=== PATIENT | female | born 1990 | race Two or more races ===

== ENCOUNTER 2024-09-03 19:49 | Emergency (ER) | payer MEDICAID ==
[~2024-09-03] VITALS: Ht 152.4 cm; Wt 66.6 kg
--- NOTE | 2024-09-03 20:28 | ED.PDOC ---
HPI Comments 33 y/o F with a history of anemia and 1 prior blood transfusion presents for 1x week history of mid sternal chest pain. Patient states pain radiates to her right arm, bilateral lower chest and right leg in addition to having associated fever, nausea, vomiting, diarrhea, and intermittent shortness of breath. She denies any palpitations, cough, congestion, bloody vomitus or stools, or further associated symptoms. No endorsed recent sick contact. Only significant history of anemia and blood transfusions. Chief Complaint: Chest Pain Time Seen by MD: 20:20 Reviewed Notes: Nurses Notes, Medications, Allergies Allergies: Coded Allergies: NO KNOWN ALLERGIES (Unverified , 09/03/24) Home Meds Active Scripts Ondansetron Odt 4MG Tab (ZOFRAN PO) 4 Mg Tb, 4 MG PO TID PRN, #20 TAB Prn nausea or vomiting ODT TAB-DISSOLVE IN MOUTH, THEN SWALLOW Prov:JUAN M ERICKSON MD 09/03/24 Ibuprofen Micronized (Ibuprofen) 800 Mg Tab, 800 MG PO Q8HP PRN, #30 TAB Prn fever or pain. Take with food. Prov:JUAN M ERICKSON MD 09/03/24 Acetaminophen (Tylenol Extra Strength) 500 Mg Tab, 1000 MG PO Q6HP PRN, #30 TAB Prn fever or pain Prov:JUAN M ERICKSON MD 09/03/24 Information Source: Patient Mode of Arrival: Ambulatory Severity: Moderate Timing: Weeks Duration: Since onset Prehospital treatment: None Past Medical History PAST MEDICAL HISTORY: Anemia Surgical History (Other): blood transfusions neck cyst removal SANITATION INSPECTOR History: Denies all SANITATION INSPECTOR Hx Family History Family History: Unknown Social History Smoker: Non-Smoker Alcohol: Denies ETOH Use Drugs: Denies Drug Use Lives In: Home All Other Systems: Reviewed and Negative (As per HPI) Physical Exam General Appearance: No Apparent Distress, Obese HEENT: Other (Pupils and face symmetric. Moist mucous membranes.) Neck: Full Range of Motion, Normal Inspection Respiratory: Lungs Clear, No Accessory Muscle Use, No Respiratory Distress, Normal Breath Sounds Cardiovascular: No Edema, No JVD, Tachycardia Breast Exam: Deferred Gastrointestinal: Non Tender, Soft Genitalia: Deferred Pelvic: Deferred Rectal: Deferred Extremities: No calf tenderness, Normal range of motion, No pedal edema Neurologic: Alert (Oriented x4), Normal Affect, Normal Mood Cerebellar Function: NOT DONE Reflexes: NOT DONE Skin: Dry, Normal Color, Warm Lymphatic: NOT DONE EKG EKG : Comments Sinus tach, rate 114, normal intervals, normal axis, normal QRS, no ST/T changes. Was a procedure done? Was a procedure done?: No CP Differential Dx Differential Diagnosis: N/A Differential Diagnosis: N/A Differential Diagnosis: Angina, Chest Wall Pain, Cholelithiasis, Costochondritis, Esophageal reflux/spasm, Gastritis, Myocardial Infarction, Pericarditis, Pneumonia, Pulmonary Embolus, Other (viral syndrome ) X-Ray, Labs, Meds, VS Vital Signs Date Time Temp Pulse Resp B/P (MAP) Pulse Ox O2 Delivery O2 Flow Rate FiO2 09/03/24 21:28 98 Room Air* 0 21 09/03/24 20:44 97.9 116 20 111/67 (82) 95 97.9 09/03/24 19:59 114 09/03/24 19:54 97.7 119 20 122/72 (89) 98 97.7 Lab Test 09/03/24 20:59 09/03/24 20:33 09/03/24 20:20 09/03/24 20:10 Range/Units Troponin I High Sensitivity < 3 L </=34 ng/L Influenza Type A Antigen Negative Negative Influenza Type B Antigen Negative Negative SARS-CoV-2 Antigen (Rapid) Negative NEGATIVE Urine Color Yellow Yellow Urine Clarity Clear Clear Urine pH 8.5 5.0-9.0 Urine Specific [place] 1.028 1.001-1.035 Urine Protein 1+ H Negative Urine Ketones Negative Negative Urine Blood Negative Negative /uL Urine Nitrite Negative Negative Urine Bilirubin Negative Negative Urine Urobilinogen 2 H Negative mg/dL Urine Leukocyte Esterase Negative Negative /uL Urine RBC <1 0 - 4 /hpf Urine Microscopic WBC 1 0-5 /HPF Urine Squamous Epithelial Cells Few <5 /hpf Urine Bacteria None seen None Seen /hpf Urine Mucus Few None Seen Urine Glucose Normal Normal mg/dL Urine Test Negative Negative Test 09/03/24 20:03 Range/Units White Blood Count 9.7 4.4-10.8 10^3/uL Red Blood Count 4.41 4.0-5.20 10^6/uL Hemoglobin 13.4 12.2-16.2 g/dL Hematocrit 37.4 36.0-46.0 % Mean Corpuscular Volume 84.9 80.0-100.0 fL Mean Corpuscular Hemoglobin 30.3 28.0-32.0 pg Mean Corpuscular Hemoglobin Concent 35.7 32.0-36.0 g/dL Red Cell Distribution Width 13.2 11.8-14.3 % Platelet Count 234 140-450 10^3/uL Mean Platelet Volume 9.5 6.9-10.8 fL Neutrophils (%) (Auto) 87.0 H 37.0-80.0 % Lymphocytes (%) (Auto) 8.3 L 10.0-50.0 % Monocytes (%) (Auto) 3.3 0.0-12.0 % Eosinophils (%) (Auto) 1.0 0.0-7.0 % Basophils (%) (Auto) 0.4 0.0-2.0 % Neutrophils # (Auto) 8.4 1.6-8.6 10 ^3/uL Lymphocytes # (Auto) 0.8 0.4-5.4 10 ^3/uL Monocytes # (Auto) 0.3 0-1.3 10 ^3/uL Eosinophils # (Auto) 0.1 0-0.8 10 ^3/uL Basophils # (Auto) 0 0-0.2 10 ^3/uL Nucleated Red Blood Cells 0.0 % Sodium Level 142 136-145 mmol/L Potassium Level 3.4 L 3.5-5.1 mmol/L Chloride Level 105 98-107 mmol/L Carbon Dioxide Level 26 20-31 mmol/L Anion Gap 11 5-15 Blood Urea Nitrogen 10 9-23 mg/dL Creatinine 0.91 0.550-1.02 mg/dL Glomerular Filtration Rate Calc 86 >90 mL/min BUN/Creatinine Ratio 11.0 10.0-20.0 Serum Glucose 120 H 74-106 mg/dL Calcium Level 10.5 H 8.7-10.4 mg/dL Troponin I High Sensitivity < 3 L </=34 ng/L B-Type Natriuretic Peptide 2.91 0-100 pg/mL Current Medications Medications (Trade) Dose Ordered Sig/Juanito Route Start Time Stop Time Status Last Admin Sodium Chloride 2,000 ml @ 1,000 mls/hr Q2H ONCE IV 09/03/24 20:30 09/03/24 22:29 09/03/24 20:56 Acetaminophen (Tylenol Tablet Or Capsule) 1,000 mg ONCE ONCE PO 09/03/24 20:30 09/03/24 20:31 DC 09/03/24 21:01 Potassium Bicarbonate (Klor-Con/Ef) 50 meq ONCE ONCE PO 09/03/24 21:15 09/03/24 21:16 DC 09/03/24 21:24 PROCEDURE(s): CXR1 - CHEST XRAY 1 VIEW REASON: cp ORDER NUMBER(s): [id number], ACCESSION NUMBER(s): [id number] CHEST RADIOGRAPH Indication: cp Technique: Single frontal view of the chest was obtained Comparison: None FINDINGS: Lines and Tubes: None Lungs: No focal consolidation. Pleura: No effusion. No pneumothorax. Cardiomediastinal contours: Unremarkable Bones: No acute osseous abnormality. IMPRESSION: 1. No acute cardiopulmonary disease. X-Ray, Labs, Meds, VS Comment 33-year-old female with a history of anemia complaining of chest pain radiating to the right shoulder, associated with fever, myalgias, nausea, vomiting and diarrhea Vitals remarkable for heart rate 119 Exam unremarkable except for tachycardia Rhythm strip independently interpreted by me: Sinus tach, rate 114, no ectopy. Chest x-ray no acute disease CBC unremarkable, metabolic panel remarkable for potassium 3.4, 2 serial troponins negative, BNP normal, urine test negative, UA Patient treated with the following in the ED: 2 L 0.9 normal saline IV bolus, Tylenol 1 g p.o., Zofran 4 mg IV, effervescent potassium 50 mEq p.o. On re-evaluation, patient states symptoms have improved. Vitals are stable, tachycardia has resolved. Patient appears stable for discharge with close outpatient follow-up with her primary physician. Time of 1ST Reevaluation: 20:50 Reevaluation 1ST: Unchanged Patient Education/Counseling: Diagnosis, Treatment, Need For Follow Up Family Education/Counseling: No Family Present SEPSIS Sepsis Screen Physician Orders Electrocardigram (09/03/24 19:56) Chest Xray 1 View (09/03/24 20:20) Sodium Chloride 0.9% (09/03/24 20:30) Vital Signs Date Time Temp Pulse Resp B/P (MAP) Pulse Ox O2 Delivery O2 Flow Rate FiO2 09/03/24 21:28 98 Room Air* 0 21 09/03/24 20:44 97.9 116 20 111/67 (82) 95 97.9 09/03/24 19:59 114 09/03/24 19:54 97.7 119 20 122/72 (89) 98 97.7 Laboratory Tests Test 09/03/24 20:03 White Blood Count 9.7 10^3/uL (4.4-10.8) Medications Medications Dose Ordered Sig/Juanito Route Start Time Stop Time Status Last Admin Dose Admin Acetaminophen 1,000 mg ONCE ONCE PO 09/03/24 20:30 09/03/24 20:31 DC 09/03/24 21:01 Potassium Bicarbonate 50 meq ONCE ONCE PO 09/03/24 21:15 09/03/24 21:16 DC 09/03/24 21:24 Sodium Chloride 2,000 ml @ 1,000 mls/hr Q2H ONCE IV 09/03/24 20:30 09/03/24 22:29 09/03/24 20:56 Departure 1 Departure Time of Disposition: 21:13 Impression: Primary Impression: Chest pain with low risk for cardiac etiology Additional Impression: Viral syndrome Disposition: HOME / SELF CARE / HOMELESS Condition: Stable Additional Instructions: Your blood tests, including screening tests for heart attack and heart failure, were unremarkable except for a low potassium. We have corrected this in the ER. Your screening test for the flu was negative. Your urine test was unremarkable. Your symptoms may be due to a viral illness, which only requires treatment of your symptoms. I have prescribed medication for your symptoms. Follow-up with your primary doctor in 1-2 days. Return to ER for persistent or worsening symptoms. e-Prescriptions Ondansetron Odt 4MG Tab (ZOFRAN PO) 4 Mg Tb 4 MG PO TID PRN, #20 TAB Prn nausea or vomiting ODT TAB-DISSOLVE IN MOUTH, THEN SWALLOW Prov: JUAN M ERICKSON MD 09/03/24 Ibuprofen Micronized (Ibuprofen) 800 Mg Tab 800 MG PO Q8HP PRN, #30 TAB Prn fever or pain. Take with food. Prov: JUAN M ERICKSON MD 09/03/24 Acetaminophen (Tylenol Extra Strength) 500 Mg Tab 1000 MG PO Q6HP PRN, #30 TAB Prn fever or pain Prov: JUAN M ERICKSON MD 09/03/24 Discharged With: Relative Critical Care Note Critical Care Time?: No Stability Stability form required: No Heart Score Heart Score: Heart Score Response (Comments) Value History Slightly Suspicious 0 EKG Normal 0 Age <45 0 Risk Factors No known risk factors 0 Troponin Normal limit 0 Total 0 I personally scribed for JUAN M ERICKSON MD ([email or web address]) on 09/03/24 at 20:28. Electronically submitted by Mo Thompson ([email or web address]). I personally scribed for JUAN M ERICKSON MD ([email or web address]) on 09/03/24 at 20:56. Electronically submitted by Mo Thompson ([email or web address]). JUAN M ERICKSON MD Sep 03, 2024 20:28
[2024-09-03 20:32] LABS: Basophils # (auto) 0 10 ^3/uL (0-0.2); Basophils % (auto) 0.4 % (0.0-2.0); Eosinophils # (auto) 0.1 10 ^3/uL (0-0.8); Hematocrit 37.4 % (36.0-46.0); Hemoglobin 13.4 g/dL (12.2-16.2); Lymphocytes # (auto) 0.8 10 ^3/uL (0.4-5.4); Lymphocytes % (auto) 8.3 % (10.0-50.0); Mean Corpuscular Hemoglobin 30.3 pg (28.0-32.0); Mean Corpuscular Hgb Conc. 35.7 g/dL (32.0-36.0); Mean Corpuscular Volume 84.9 fL (80.0-100.0); Monocytes # (auto) 0.3 10 ^3/uL (0-1.3); Monocytes % (auto) 3.3 % (0.0-12.0); Neutrophils # (auto) 8.4 10 ^3/uL (1.6-8.6); Platelet Count (auto) 234 10^3/uL (140-450); Red Blood Cells 4.41 10^6/uL (4.0-5.20); Red Cell Distribution Width 13.2 % (11.8-14.3); White Blood Cell 9.7 10^3/uL (4.4-10.8)
[2024-09-03 20:36] LABS: Urine Bacteria None Seen /hpf (None Seen)
[2024-09-03 20:39] LABS: Chloride 105 mmol/L (98-107); Sodium 142 mmol/L (136-145)
[2024-09-03 20:40] LABS: Anion Gap 11 (5-15); Carbon Dioxide 26 mmol/L (20-31)
[2024-09-03 20:41] LABS: Potassium 3.4 mmol/L (3.5-5.1)
[2024-09-03 20:42] LABS: Calcium 10.5 mg/dL (8.7-10.4)
[2024-09-03 20:44] VITALS: BP 111/67; PULSE 116; RESP 20; TEMP 97.9
[2024-09-03 20:46] LABS: Blood Urea Nitrogen 10 mg/dL (9-23)
[2024-09-03] MEDS: ONDANSETRON HCL 4 MG/2 ML VIAL IV ONE (20:48)
[2024-09-03 20:53] LABS: Glucose 120 mg/dL (74-106)
[2024-09-03] MEDS: SODIUM CHLORIDE 0.9% 2,000 ML IV ONE (20:56)
[2024-09-03 20:57] LABS: COVID19 ANTIGEN SOFIA FIA NEGATIVE (NEGATIVE)
[2024-09-03 20:58] LABS: Rapid Influenza A Negative (Negative); Rapid Influenza B Negative (Negative)
[2024-09-03 21:00] LABS: Urine Blood Negative /uL (Negative); Urine Clarity Clear (Clear); Urine Color Yellow (Yellow); Urine Mucus FEW (None Seen); Urine Protein, UAD 1+ (Negative); Urine Specific Gravity 1.028 (1.001-1.035); Urine Squamous Epithelial Cell FEW /hpf (<5); Urine Urobilinogen 2 mg/dL (Negative); Urine WBC 1 /HPF (0-5); Urine pH 8.5 (5.0-9.0)
[2024-09-03] MEDS: ACETAMINOPHEN 500 MG TAB or CAP PO ONE (21:01)
[2024-09-03] MEDS ORDERED: ACET-1304 PO (21:16)
[2024-09-03] MEDS ORDERED: ZOFR4T PO (21:16)
[2024-09-03] MEDS ORDERED: IBUP-1455 PO (21:16)
[2024-09-03] MEDS: POTASSIUM EFFERVESENT TAB 25 MEQ PO ONE (21:24)
[2024-09-03 21:28] VITALS: O2SAT 98
--- NOTE | 2024-09-03 21:40 | DVH ---
CHEST RADIOGRAPH Indication: cp Technique: Single frontal view of the chest was obtained Comparison: None FINDINGS: Lines and Tubes: None Lungs: No focal consolidation. Pleura: No effusion. No pneumothorax. Cardiomediastinal contours: Unremarkable Bones: No acute osseous abnormality. IMPRESSION: 1. No acute cardiopulmonary disease.
--- NOTE | 2024-09-04 02:02 | ECG ---
[facility] Test Date: 2024-09-03 Test Time: 19:59:57 Pat Name: LINDSAY BUSTOS Department: ed Room: Gender: F Youth Services Librarian: david : 1990 Requested By: EMERGENCY EMERGENCY Order Number: [id number] Reading MD: Measurements Intervals [place] Rate: 114 P: 44 GA: 101 QRS: 32 QRSD: 69 T: 30 QT: 310 QTc: 427 Interpretive Statements Sinus tachycardia Low voltage, precordial leads Please click the below link to view image of tracing.
== END 2024-09-03 22:08 | disposition home or self-care (01) ==
LOC: ER 19:49
DX: R07.2 Precordial pain (principal); B34.9 Viral infection, unspecified; J45.909 Unspecified asthma, uncomplicated; Z79.899 Other long term (current) drug therapy; Z98.890 Other specified postprocedural states; Z20.822 Contact with and (suspected) exposure to COVID-19
CPT/HCPCS: 36415; 71045; 80048; 81001; 81025; 83880; 84484; 85025; 87426; 87804; 93005; 96360; 99285; J7030